=== PATIENT | female | born 1975 | race Caucasian/White ===

== ENCOUNTER 2024-05-04 19:14 | Emergency (ER) | payer OTHER ==
[~2024-05-04] VITALS: Ht 157.5 cm; Wt 113.4 kg
[2024-05-04 19:30] VITALS: BP 116/84; PULSE 96; RESP 18; TEMP 98.5; O2SAT 99
[2024-05-04 20:57] LABS: BASOPHILS # (AUTO) 0.1 K/uL (0.00-0.22); EOSINOPHILS # (AUTO) 0.1 K/uL (0-0.4); HEMOGLOBIN 17.3 g/dL (12.0-16.0)
[2024-05-04 21:00] LABS: BASOPHILS % (AUTO) 0.7 % (0.0-2.0); EOSINOPHILS % (AUTO) 1.4 % (0.0-4.0); HEMATOCRIT 51.2 % (36-48); LYMPHOCYTES # (AUTO) 2.4 K/uL (2.5-16.5); LYMPHOCYTES % (AUTO) 24.2 % (20.5-51.1); MEAN CORPUSCULAR HEMOGLOBIN 30 pg (27-31); MEAN CORPUSCULAR HGB CONC 34 g/dL (33-37); MEAN CORPUSCULAR VOLUME 89.7 fL (80-94); MONOCYTES % (AUTO) 9.5 % (1.7-9.3); NEUTROPHILS # (AUTO) 6.4 K/uL (1.8-7.7); NEUTROPHILS % (AUTO) 64.2 % (42.2-75.2); PLATELET COUNT (AUTO) 280 K/uL (140-450); RED BLOOD CELL COUNT(AUTO) 5.71 MIL/uL (4.20-5.40); RED CELL DISTRIBUTION WIDTH 13.1 % (11.6-13.7)
[2024-05-04 21:11] LABS: ANION GAP 15.2 (8-16); CALCIUM 9.6 mg/dL (8.5-10.1); CARBON DIOXIDE 28.8 mmol/L (21-32); CREATININE 1.1 mg/dL (0.6-1.3)
[2024-05-04 21:22] LABS: BILIRUBIN,DIRECT 0.2 mg/dL (0.0-0.3); TOTAL BILIRUBIN 0.9 mg/dL (0.0-1.0)
[2024-05-04 22:12] LABS: APPEARANCE,URINE CLEAR (CLEAR); BILIRUBIN,URINE NEGATIVE (NEGATIVE); BLOOD, URINE 1+ (NEGATIVE); COLOR,URINE YELLOW (YELLOW); LEUKOCYTE ESTERASE ,URINE 1+ (NEGATIVE); NITRITE, URINE NEGATIVE (NEGATIVE); PROTEIN,URINE NEGATIVE (NEGATIVE); UGLUCOSE 3+ (NEGATIVE); UROBILINOGEN,URINE 0.2 EU/dL (0.2 - 1)
[2024-05-04 22:20] LABS: AMPHETAMINE, URINE POSITIVE ng/ml (NEG <=1000); BARBITURATE, URINE NEGATIVE ng/ml (NEG <=200); BENZODIAZEPINE, URINE NEGATIVE ng/mL (NEG <=200); CANNABINOID, URINE NEGATIVE ng/mL (NEG <=50); COCAINE, URINE NEGATIVE ng/mL (NEG <=300); OPIATE, URINE NEGATIVE ng/mL (NEG <=2000); PHENCYCLIDINE SCREEN,URINE NEGATIVE ng/mL (NEG <=25)
[2024-05-04 22:22] LABS: BACTERIA,URINE >30 (MANY) /HPF (None Seen); MUCUS,URINE 1+ /LPF (None Seen); RBC,URINE 11-20 (MOD) /HPF (0-5); SQUAMOUS EPITHELIAL CELL,UR 4-10 (MOD) /LPF (0-3 (FEW)); WBC,URINE >25 (MANY) /HPF (0-5)
[2024-05-04] MEDS: NACL 0.9% 1,000 ML IV ONE (23:08)
[2024-05-04] MEDS ORDERED: FLUC100T PO (23:18)
[2024-05-04] MEDS ORDERED: NITR100C7 PO (23:18)
[2024-05-04] MEDS ORDERED: DOXY-690 PO (23:18)
[2024-05-04] MEDS ORDERED: METF-1243 PO (23:18)
[2024-05-04] MEDS ORDERED: cefTRIAXone 500 MG VIAL ONE (23:27)
[2024-05-04] MEDS ORDERED: LIDOCAINE MPF 1% 5 ML ONE (23:28)
[2024-05-04] MEDS: cefTRIAXone 500 MG in LIDOCAINE MPF 1% 1 ML IM ONE (23:34)
[2024-05-04 23:46] VITALS: BP 126/70; PULSE 96; RESP 18; TEMP 97.9; O2SAT 99
== END 2024-05-04 23:39 | disposition home or self-care (01) ==
LOC: MED 19:14
DX: R73.9 Hyperglycemia, unspecified (principal); N39.0 Urinary tract infection, site not specified; N76.0 Acute vaginitis; F15.90 Other stimulant use, unspecified, uncomplicated; Z79.899 Other long term (current) drug therapy
CPT/HCPCS: 36415; 80048; 80076; 80305; 81001; 85025; 87086; 87210; 87491; 96360; 96372; 99284; J0696; J2003; J7030